=== PATIENT | male | born 1955 | race Caucasian/White ===

== ENCOUNTER 2016-12-01 13:36 | Emergency (ER) | payer OTHER ==
[2016-12-01] MEDS ORDERED: Morphine INJ* 2 MG/ML 1 ML SYRINGE IM ONE (14:35)
--- NOTE | 2016-12-01 15:29 | RAD ---
Indication: Right shoulder injury. 2 views of the right shoulder demonstrates anterior inferior dislocation of the right humeral head. IMPRESSION: Anterior inferior dislocation right humeral head.
--- NOTE | 2016-12-01 15:30 | RAD ---
Indication: Right chest injury after fall. 2 views of the chest including dual energy PA views are reviewed and compared to previous exam dated March 16, 2013. No mediastinal shift is noted. Heart is of normal size and configuration. Lung andrade appear clear. Again noted is an anterior inferior dislocation of the right humeral head. IMPRESSION: Anterior inferior dislocation of the right humeral head. Lung andrade are clear.
[2016-12-01] MEDS ORDERED: fentaNYL* 50 MCG/ML 2 ML VIAL (100 MCG VIAL) IV SLOW PU ONE (15:57)
[2016-12-01] MEDS ORDERED: Midazolam* 1 MG/ML 5 ML VIAL (5 MG) SLOW PUSH ONE (15:57)
[2016-12-01] MEDS ORDERED: NS 0.9% 1000 ML* 1,000 ML IV ONE (15:58)
[2016-12-01] MEDS ORDERED: Midazolam* 1 MG/ML 10 ML VIAL (10 MG) ONE (16:21)
[2016-12-01] MEDS ORDERED: fentaNYL* 50 MCG/ML 2 ML VIAL (100 MCG VIAL) ONE (16:21)
--- NOTE | 2016-12-01 17:02 | ED ---
Upper Extremity Pain - HPI Summary HPI Summary: Patient presents to ED with CC of right shoulder pain after jumping out of a moving pony cart approximately 1 hour ago. He states he was unable to move his arm immediately after the fall. He denies numbness, tingling or color change. He has good pulses bilaterally. Denies hitting head or LOC. Denies other injuries including neck pain, back pain or hip pain. He is able to fell his fingers and and is has full ROM in wrist and finger.s. Takes no medications, no allergies. Last PO intake 5 hours ago. Denies smoking history, but drinks 2 large glasses of wine per day. - History of Current Complaint Chief Complaint: EDShoulderClavicLeena Stated Complaint: SHOULDER PAIN Time Seen by Provider: 12/01/16 14:07 Hx Obtained From: Patient Mechanism Of Injury: Blunt Trauma Onset/Duration: Started Hours Ago Timing: Constant Severity Initially: Severe Severity Currently: Severe Pain Location: Shoulder Character: Sharp Aggravating Factor(s): Movement, Lifting, Flexion, Internal/External Rotation Alleviating Factor(s): Rest Associated Signs & Symptoms: Positive: Negative Related History: Dominant Hand Right - Risk Factors Non-Orthopedic Risk Factor: Negative DVT Risk Factors: Negative Septic Arthritis Risk Factor: Extremes of Age Compartment Syndrome Risk Factors: Pain - Allergies/Home Medications Allergies/Adverse Reactions: Allergies Allergy/AdvReac Type Severity Reaction Status Date / Time No Known Allergies Allergy Verified 12/01/16 13:41 PMH/Surg Hx/FS Hx/Imm Hx Previously Healthy: Yes Endocrine/Hematology History: Denies: Hx Diabetes - Immunization History Hx Pertussis Vaccination: No Immunizations Up to Date: No Infectious Disease History: No Infectious Disease History: Denies: Traveled Outside the [place] in Last 30 Days - Social History Occupation: Employed Full-time Lives: With Family Alcohol Use: Occasionally Hx Substance Use: No Substance Use Type: Reports: None Hx Tobacco Use: No Smoking Status (MU): Former Smoker Review of Systems Constitutional: Negative Eyes: Negative Cardiovascular: Negative Respiratory: Negative Positive: Arthralgia, Myalgia - right shoulder pain anteriorly and posteriorly with radiation to the right lateral humerus Skin: Negative Neurological: Negative All Other Systems Reviewed And Are Negative: Yes Physical Exam Triage Information Reviewed: Yes Vital Signs On Initial Exam: Initial Vitals Temp Pulse Resp BP Pulse Ox 98.8 F 59 17 152/86 97 12/01/16 13:41 12/01/16 13:41 12/01/16 13:41 12/01/16 13:41 12/01/16 13:41 Vital Signs Reviewed: Yes Appearance: Positive: Well-Nourished, Pain Distress Skin: Positive: Warm, Skin Color Reflects Adequate Perfusion Head/Face: Positive: Normal Head/Face Inspection Eyes: Positive: EOMI, JESSICA, Conjunctiva Clear Neck: Positive: Supple, No Lymphadenopathy Respiratory/Lung Sounds: Positive: Clear to Auscultation, Breath Sounds Present Cardiovascular: Positive: Normal, RRR, Pulses are Symmetrical in both Upper and Lower Extremities Musculoskeletal: Positive: Other - right shoulder pain anteriorly and posteriorly with radiation to the right lateral humerus Neurological: Positive: Sensory/Motor Intact, Alert, Oriented to Person Place, Time, Speech Normal Psychiatric: Positive: Normal AVPU Assessment: Alert - Marisa Coma Scale Best Eye Response: 4 - Spontaneous Best Motor Response: 6 - Obeys Commands Best Verbal Response: 5 - Oriented Coma Scale Total: 15 Procedures - Joint Reduction Joint Reduction Site: shoulder (R) Conscious Sedation: Yes Reduction Attempts: 2 Pre-Procedure NV Exam: Yes Post Joint Reduction Film: joint reduced Diagnostics - Vital Signs Vital Signs Temp Pulse Resp BP Pulse Ox 12/01/16 16:50 67 17 124/60 95 12/01/16 16:47 62 17 125/88 93 12/01/16 16:45 67 17 133/101 95 12/01/16 16:44 14 12/01/16 16:40 62 16 157/90 96 12/01/16 16:12 139/80 12/01/16 16:09 62 17 97 12/01/16 14:43 18 12/01/16 14:12 59 97 12/01/16 13:41 98.8 F 59 17 152/86 97 - Laboratory Lab Statement: Any lab studies that have been ordered have been reviewed, and results considered in the medical decision making process. - Radiology No standard instances Xray Interpretation: Positive (See Comments) Radiology Interpretation Completed By: Radiologist - IMPRESSION: Anterior inferior dislocation right humeral head. Re-Evaluation - Re-Evaluation First Eval Change: Worse Second Eval Change: Improved - Patients pain improved after 8mg morphine, but pain still at 8/10 Course/Dx - Course Course Of Treatment: Shoulder Right Xray: IMPRESSION: Anterior inferior dislocation right humeral head. Post reduction xray: During his stay, patient was given 8mg morphine. During conscious sedation given by Dr. Galarza gave patient 75mg Fentanyl, 7.5 Versed. Patient tolerated well. Recovery approximatey 1 hour with RN's accompanying. Reduction films showed shoulder is reduced. Ibuprofen 600mg three times daily for pain and inflammation. - Diagnoses Differential Diagnosis/HQI/PQRI: Positive: Fracture (Open), Fracture (Closed), Strain, Sprain Provider Diagnoses: Shoulder dislocation Discharge - Discharge Plan Condition: Stable Disposition: HOME Patient Education Materials: Shoulder Dislocation (ED) Referrals: Mick Lewis MD [Primary Care Provider] - Additional Instructions: Follow up with DR. Griffin. Call office tomorrow morning. Ibuprofen 600mg three times daily as needed for pain and inflammation. Ice packs to the area on day 1. Use moist heat to the area starting tomorrow and use 2-3 times a day for your comfort. Continue in sling until you follow up with ortho.
--- NOTE | 2016-12-01 17:24 | RAD ---
Indication: Postreduction right humeral dislocation. 2 views of the right shoulder demonstrates reduction of the previously identified inferior dislocation of the right humeral head. There appears to be a Hill-Sachs deformity noted. IMPRESSION: Reduction of previously noted anterior inferior dislocation of the humeral head.
[2016-12-01 17:40] VITALS: BP 128/77
== END 2016-12-01 16:02 | disposition home or self-care (01) ==
LOC: ED 13:36
DX: S43.004A Unspecified dislocation of right shoulder joint, initial encounter (principal); W19.XXXA Unspecified fall, initial encounter; Y93.9 Activity, unspecified; Y92.9 Unspecified place or not applicable; Y99.9 Unspecified external cause status
CPT/HCPCS: 71020; 96372; 96374; 99282; J2250; J2270; J3010